=== PATIENT | female | born 1970 | race Asian ===

== ENCOUNTER 2024-06-11 07:25 | Day surgery (SDC) | payer OTHER, SELFPAY ==
[2024-06-11 08:04] VITALS: BP 106/74; PULSE 76; RESP 16; TEMP 36.3; O2SAT 100
[2024-06-11] MEDS: LACTATED RINGERS 1,000 ML 42 ML IV (08:13)
--- NOTE | 2024-06-11 08:31 | PM.HP.IH.1 ---
History of Present Illness History of Present Illness Date Patient Seen: 06/11/24 Time Patient Seen: 08:31 Chief complaint: Screening Colonoscopy Narrative: Ji is a 54-year-old woman here for colonoscopy. She has never had a colonoscopy before. No family history of colon cancer. [facility] Social History Smoking Status: Never smoker Meds Home Medications and Allergies Home Medications Medication Instructions Recorded Confirmed Type sodium,potassium,mag sulfates 17.5 See Rx Instructions PO .COMPLEX 05/08/24 Rx gram-3.13 gram-1.6 gram oral soln #354 mL (Suprep Bowel Prep Kit) metformin 1,000 mg tablet 1,000 mg PO QAM 06/11/24 06/11/24 History methimazole 5 mg tablet 5 mg PO DAILY 06/11/24 06/11/24 History Allergies Allergy/AdvReac Type Severity Reaction Status Date / Time No Known Drug Allergies Allergy Verified 06/11/24 07:53 Exam Vital Signs (past 8 hours): - 06/11/24 08:04 Temperature 97.3 F L Pulse Rate 76 Respiratory Rate 16 Blood Pressure 106/74 Pulse Oximetry 100 Oxygen Delivery Method Room Air Oxygen Flow Rate 0 Oxygen Delivery Method Room Air Oxygen Flow Rate 0 Const General: No acute distress Resp Effort & Inspection: normal respiratory effort Assessment & Plan Assessment and plan (1) Colon cancer screening: Status: Acute Plan Colonoscopy Time-Based Coding :: [TOTAL MINUTES] spent with patient and on the chart (including review of chart, obtaining history, exam, reviewing outside data, placing orders, documenting exam and treatment plan, and counseling patient) on [DATE]. [employer] Document charge(s): No
--- NOTE | 2024-06-11 08:59 | PM.OP.COLON ---
Operative Date/Time/Diagnoses Date of procedure: 06/11/24 Time of procedure: 08:59 Pre-op diagnosis: Colon cancer screening Post-op diagnosis: same Procedure & Clinicians Study performed: Colonoscopy Same procedure as scheduled: Yes Surgeon: Jaxson Martinez Procedure Notes Procedure in detail: Surgeon: Jaxson Martinez MD Anesthesia: Kimi Prieto CRNA Procedure: The patient was brought to the endoscopy suite, placed in left lateral decubitus position. The patient was connected to monitoring devices. A time-out was performed. Sedation was administered. Once the patient was adequately sedated, a digital rectal exam was performed and was normal. The scope was then inserted and advanced to the cecum where the appendiceal orifice was identified and photographed. The scope was then slowly withdrawn over greater than 6 minutes. The mucosa was thoroughly inspected. No abnormalities were identified. The scope was retroflexed in the rectum. The scope was straightened and removed. The patient was awakened and brought to recovery. Scope withdrawal time: 6 minutes Sedation time: 10 minutes EBL: 0 Findings: Normal colon Post-procedure Recommendations: Colonoscopy in 10 years Disposition: PACU
[2024-06-11 09:00] VITALS: BP 107/73; PULSE 96; RESP 16; TEMP 37.1; O2SAT 100
[2024-06-11 09:04] VITALS: BP 100/69; PULSE 97; RESP 16; O2SAT 99
[2024-06-11 09:09] VITALS: BP 106/74; PULSE 97; RESP 15; O2SAT 100
[2024-06-11 09:15] VITALS: BP 109/77; PULSE 95; RESP 16; O2SAT 100
== END 2024-06-11 09:21 | disposition home or self-care (01) ==
PROVIDERS: PCP Internal Medicine; Referring Provider Surgery; Visit Provider Surgery
PROC: 0DJD8ZZ Inspection of Lower Intestinal Tract, Via Natural or Artificial Opening Endoscopic (ICD-10-PCS; CPT 45378; principal; 2024-06-11 08:45)
DX: Z12.11 Encounter for screening for malignant neoplasm of colon (principal)
CPT/HCPCS: 45378; J2405; J2704

== ENCOUNTER 2024-10-08 10:24 | Emergency (ER) | payer OTHER, SELFPAY ==
--- NOTE | 2024-10-08 10:33 | ED.TRAUMA ---
HPI - Trauma General Stated Complaint: head injury and left shoulder injury Time Seen by Provider: 10/08/24 10:30 Related Data Home Medications ?Medication ?Instructions ?Recorded ?Confirmed metformin 1,000 mg tablet 1,000 mg PO QAM 06/11/24 06/11/24 methimazole 5 mg tablet 5 mg PO DAILY 06/11/24 06/11/24 Allergies Allergy/AdvReac Type Severity Reaction Status Date / Time No Known Drug Allergies Allergy Verified 06/11/24 07:53 Review of Systems Review of Systems ROS Unobtainable: All systems reviewed & are unremarkable except as noted in HPI and below Exam Narrative Exam Narrative: GENERAL: [54] year old patient appears stated age. Well-developed patient, in mild distress. HEAD: Atraumatic. Normocephalic. EYES: Pupils equal round and reactive. Extraocular motions intact. No scleral icterus. No injection or drainage. ENT: Nose without bleeding, purulent drainage. Throat without erythema, tonsillar hypertrophy or exudate. Airway patent. NECK: Trachea midline. Non tender CARDIOVASCULAR: Regular rate and rhythm without murmurs, gallops, or rubs. RESPIRATORY: Clear to auscultation. Breath sounds equal bilaterally. No wheezes, rales, or rhonchi. GASTROINTESTINAL: Abdomen soft, non-tender, nondistended. EXTREMITIES: No edema or joint tenderness. BACK: Nontender without deformity or crepitance. No flank tenderness. NEURO: AOx3. SKIN: No rash or erythema of visible areas Discharge Plan Departure Prescriptions: No Action metformin 1,000 mg tablet 1,000 mg PO QAM methimazole 5 mg Tablet 5 mg PO DAILY Referrals: Myrna Bravo ARNP [Primary Care Provider, Family Practice]
[2024-10-08 10:38] VITALS: BP 137/82; PULSE 80; RESP 14; TEMP 36.6; O2SAT 96; BMI 25.0
--- NOTE | 2024-10-08 11:01 | ED_ITS ---
<Statement entered by Al Padgett, DO - 10/08/24 18:32> Co-sign statement: I was available for consultation during this patient's emergency department visit. This chart is being signed by myself for administrative purposes only. I do not have direct contact with this patient during this visit. They were seen independently by the APC. HPI - Head Injury General Chief complaint: Head Injury Stated complaint: head injury and left shoulder injury Time Seen by Provider: 10/08/24 10:30 Source: patient Mode of arrival: Ambulatory History of Present Illness HPI Narrative: This is a 54-year-old female presents emergency department due to continued head pain and nausea. She was at work when a railing fell a few inches and hit her in the head and left shoulder. The railing was roughly 20 lb. She was not lose conscious. She reports waking up with mild nausea as well as slight dizziness. No nausea or dizziness currently. She denies any slurred speech, facial drooping, weakness in the upper extremities. She was not on blood thinners. Related Data Home Medications ?Medication ?Instructions ?Recorded ?Confirmed metformin 1,000 mg tablet 1,000 mg PO QAM 06/11/24 methimazole 5 mg tablet 5 mg PO DAILY 06/11/2406/11 Allergies Allergy/AdvReac Type Severity Reaction Status Date / Time No Known Drug Allergies Allergy Verified 10/08/24 10:44 Review of Systems Review of Systems Narrative: GENERAL: Denies chills, fatigue, malaise, fever, sweats. HEENT: Denies sinus pain, ear pain, sore throat, difficulty swallowing, dizziness. RESPIRATORY: Denies dyspnea, cough, wheezing, hemoptysis, sputum. CARDIOVASCULAR: Denies chest pain, palpitations, orthopnea, edema, GASTROINTESTINAL: Denies nausea, vomiting, abdominal pain, diarrhea, constipation, melena. : Denies dysuria, frequency, incontinence, hematuria, urinary retention. MUSCULOSKELETAL: Reports head pain and left shoulder pain, otherwise denies weakness, joint pain, or bony pain SKIN: Denies rash, skin lesions, or other NEUROLOGIC: Denies weakness, headache, numbness, change in speech, confusion, seizures, incoordination. PSYCHIATRIC: No concerning psychosocial issues. 12 point review of systems is negative except for those stated above Patient History Smoking Status: Unknown if ever smoked Exam Narrative Exam Narrative: GENERAL: Well-developed patient, in mild distress. HEAD: Atraumatic. Normocephalic. EYES: Pupils equal round and reactive. Extraocular motions intact. No scleral icterus. No injection or drainage. ENT: Nose without bleeding, purulent drainage. Throat without erythema, tonsillar hypertrophy or exudate. Airway patent. NECK: Trachea midline. Non tender EXTREMITIES: No significant tenderness to palpation to the left shoulder NEURO: AOx3. Cranial nerves 2-12 intact SKIN: No rash or erythema of visible areas Initial Vital Signs Initial Vital Signs: Vital Signs Temperature 97.8 F 10/08/24 10:38 Pulse Rate 80 10/08/24 10:38 Respiratory Rate 14 10/08/24 10:38 Blood Pressure 137/82 10/08/24 10:38 Pulse Oximetry 96 10/08/24 10:38 Oxygen Delivery Method Room Air 10/08/24 10:38 Course Vital Signs Vital signs: Vital Signs - 8 hr 10/08/24 10:38 Temperature 97.8 F Pulse Rate 80 Respiratory Rate 14 Blood Pressure 137/82 Pulse Oximetry 96 Oxygen Delivery Method Room Air MDM - Head Injury MDM Narrative Medical decision making narrative: ED course: This is a 54-year-old female presenting to the emergency department due to a injury at work where a piece of metal fell a few inches and hit her in the head and shoulder. She was a very reassuring neuro exam and not on blood thinners. Nexus criteria recommended no CT. May have possible very mild concussion symptoms. She was state that the left shoulder pain was improving and no significant tenderness on palpation and no imaging ordered. Recommended supportive care. CC: Head injury Complicating co-morbidities: None Data collected from: Previous notes Medical records reviewed: Patient was not been to this emergency department in the past. History of diabetes. History of hyperthyroidism. Differential considered, but not limited to: Concussion, intracranial bleed, fracture, contusion Exam documented above, pertinent findings include: Reassuring neuro exam Lab Test results independently reviewed as above. Pertinent findings: None obtained Imaging studies independently reviewed: None obtained Scores Used: None MIPS Elements: None Consultations: None Treatments: None Re-evaluations: None Discussion: Discussed plan with the patient was comfortable with the plan Diagnosis: Head contusion, shoulder contusion Disposition: see below, along with detailed discharge instructions that have been reviewed with patient as well as indications for ED re-evaluation and additional outpatient follow up Discharge Plan Departure Patient Disposition: Home Clinical Impression: Acute head injury, Contusion of left shoulder Instructions: Concussion, DI for Closed Head Injury Activity Restrictions/Additional Instructions: Thank you for coming to the [facility] Emergency Department today. Overall your exam was very reassuring. I have low concern for any kind of ?brain bleed?. It also sounds like your shoulder pain is getting better and I have low concern for fracture. Please take this weekend to rest with the warm compresses and ice until your symptoms improve. You may also use ibuprofen and Tylenol. Please return to the emergency department if you develop any slurred speech, facial drooping, significant weakness, or any other concerning signs or symptoms. I hope you feel better soon. Please follow up with your primary care provider within a week if your symptoms continue. If you do not have a primary care provider please contact the [facility] Resource line at [phone]. They will ask some questions about your medical history and help you get set up with a provider in the community. Prescriptions: No Action metformin 1,000 mg tablet 1,000 mg PO QAM methimazole 5 mg Tablet 5 mg PO DAILY Referrals: Myrna Bravo ARNP [Primary Care Provider, Family Practice] Stand Alone Forms: Patient Portal/API
[2024-10-08 11:23] VITALS: BP 140/86; PULSE 66; RESP 14; O2SAT 96
== END 2024-10-08 11:22 | disposition home or self-care (01) ==
PROVIDERS: Emergency Provider Physician Assistant Medical; PCP Internal Medicine
DX: S09.90XA Unspecified injury of head, initial encounter (principal); S40.012A Contusion of left shoulder, initial encounter; W20.8XXA Other cause of strike by thrown, projected or falling object, initial encounter; Y99.0 Civilian activity done for income or pay
CPT/HCPCS: 99281